=== PATIENT | male | born 1945 | race Caucasian/White ===

== ENCOUNTER → 2017-04-03 | Outpatient (CLI) | payer MEDICARE, OTHER | END | disposition home or self-care (01) | LOC: GMAM 14:07 | PROVIDERS: ATTEND Family Medicine | DX: Z79.899 Other long term (current) drug therapy (principal); Z12.5 Encounter for screening for malignant neoplasm of prostate; E53.8 Deficiency of other specified B group vitamins | CPT/HCPCS: 80162; 82607; G0103 ==

== ENCOUNTER → 2017-06-11 | Outpatient (CLI) | payer MEDICARE, OTHER ==
--- NOTE | 2017-06-11 14:19 | US ---
EXAM DESCRIPTION: Thyroid CLINICAL HISTORY: 71 years Male, THYROID NODULE COMPARISON: None. TECHNIQUE: Real-time sonographic images of the thyroid are obtained. FINDINGS: Right lobe of the thyroid measures 4.9 x 1.9 x 2.4 cm. Left lobe of the thyroid measures 4.8 x 2.2 x 2.4 cm. The isthmus measures 6 mm in thickness. The thyroid is diffusely heterogeneous in echogenicity. Several ill-defined less than 1 cm solid nodules are seen in both lobes of the thyroid. There is a 2.0 x 1.7 x 1.3 cm hypoechoic nodule that is wider than tall with ill-defined borders in the upper pole. No abnormal calcifications are identified. There is a heterogeneous mildly hypoechoic solid nodule that is wider than tall with ill-defined margins and no abnormal calcifications in the midpole of the left lobe measuring 1.7 x 1.5 x 1.1 cm. IMPRESSION: Heterogeneous echogenicity of the thyroid with multiple solid nodules most consistent with multinodular goiter. Consider fine-needle aspiration of largest nodules measuring 2 cm in the upper pole of the right lobe and 1.7 cm in the midpole of the left lobe thyroid. Electronically signed by: Juve Phillip MD 06/11/2017 2:18 PM CDT
== END | disposition home or self-care (01) ==
LOC: US 15:31
PROVIDERS: ATTEND Family Medicine
DX: E04.1 Nontoxic single thyroid nodule (principal)

== ENCOUNTER → 2017-06-12 | Outpatient (CLI) | payer MEDICARE, OTHER | LOC: GMAM 14:49 | PROVIDERS: ATTEND Family Medicine | DX: E29.1 Testicular hypofunction (principal) ==

== ENCOUNTER → 2017-10-22 | Outpatient (CLI) | payer MEDICARE, OTHER | END | disposition home or self-care (01) | LOC: LAB.O 14:05 | PROVIDERS: ATTEND Family Medicine | DX: Z79.899 Other long term (current) drug therapy (principal); E29.1 Testicular hypofunction; E53.8 Deficiency of other specified B group vitamins; E11.65 Type 2 diabetes mellitus with hyperglycemia ==

== ENCOUNTER → 2018-05-07 | Outpatient (CLI) | payer MEDICARE, OTHER | LOC: GMAM 14:53 | PROVIDERS: ATTEND Family Medicine | DX: E29.1 Testicular hypofunction (principal); E53.8 Deficiency of other specified B group vitamins; Z79.899 Other long term (current) drug therapy ==

== ENCOUNTER → 2018-10-29 | Outpatient (CLI) | payer MEDICARE, OTHER | LOC: GMAM 14:23 | PROVIDERS: ATTEND Family Medicine | DX: E53.8 Deficiency of other specified B group vitamins (principal); E04.8 Other specified nontoxic goiter; Z12.5 Encounter for screening for malignant neoplasm of prostate | CPT/HCPCS: 82607; 84439; 84443; G0103 ==

== ENCOUNTER → 2019-05-12 | Outpatient (CLI) | payer MEDICARE, OTHER | LOC: GMAM 14:05 | PROVIDERS: ATTEND Family Medicine | DX: Z79.899 Other long term (current) drug therapy (principal) ==

== ENCOUNTER → 2019-07-10 | Outpatient (CLI) | payer MEDICARE, OTHER | LOC: GMAM 12:14 | PROVIDERS: ATTEND Family Medicine | DX: I10 Essential (primary) hypertension (principal); C61 Malignant neoplasm of prostate; E04.8 Other specified nontoxic goiter; E11.9 Type 2 diabetes mellitus without complications ==

== ENCOUNTER → 2019-07-30 | Outpatient (CLI) | payer MEDICARE, OTHER | LOC: GMAM 17:00 | PROVIDERS: ATTEND Family Medicine | DX: R80.9 Proteinuria, unspecified (principal) ==

== ENCOUNTER → 2020-02-10 | Outpatient (CLI) | payer MEDICARE, OTHER | LOC: GMAM 10:54 | PROVIDERS: ATTEND Family Medicine | DX: R94.6 Abnormal results of thyroid function studies (principal); C61 Malignant neoplasm of prostate; I10 Essential (primary) hypertension; E11.9 Type 2 diabetes mellitus without complications; Z79.899 Other long term (current) drug therapy ==

== ENCOUNTER → 2020-03-24 | Outpatient (CLI) | payer MEDICARE, OTHER ==
--- NOTE | 2020-03-25 10:09 | MRI ---
Study: MRI of the Right Shoulder. Indication: PAIN IN RIGHT SHOULDER Technique: Multiplanar, multi sequence MRI of the right shoulder was obtained without intravenous contrast. 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 Type I acromion with moderate lateral downsloping. Moderate volume subacromial/subdeltoid bursal fluid. Full-thickness, fullwidth supraspinatus tendon tear with retraction of torn tendon fibers medially by 15 mm. High-grade infraspinatus tendinosis with irregular intermediate grade articular tearing throughout the critical zone. High-grade articular, effectively full-thickness tearing superior two thirds subscapularis tendon insertion. Teres minor tendon intact. Mild atrophy and grade 1 fatty infiltration rotator cuff musculature, most pronounced at the subscapularis muscle belly. High-grade long head biceps tendinosis and longitudinal split tearing with partial medial subluxation onto the lesser tuberosity. Circumferential labral truncation and degeneration. Mild glenohumeral joint osteoarthritis and moderate size joint effusion. No acute fracture. Impression: Full-thickness, fullwidth supraspinatus tendon tear. High-grade infraspinatus tendinosis with irregular intermediate grade articular tearing throughout its critical zone. High-grade articular, effectively full-thickness tearing superior two thirds subscapularis tendon insertion. Mild atrophy and grade 1 infiltration rotator cuff musculature. High-grade long head biceps tendinosis and longitudinal split tearing with partial medial subluxation. Circumferential labral truncation and degeneration. Mild glenohumeral joint osteoarthritis and moderate size joint effusion. Electronically signed by: Jose Rafael Shafer MD 03/25/2020 10:07 AM CDT
== END ==
LOC: MRI 13:03
PROVIDERS: ATTEND Family Medicine
DX: M75.101 Unspecified rotator cuff tear or rupture of right shoulder, not specified as traumatic (principal); M75.91 Shoulder lesion, unspecified, right shoulder; S46.811A Strain of other muscles, fascia and tendons at shoulder and upper arm level, right arm, initial encounter; S43.39 Subluxation and dislocation of other parts of shoulder girdle; M75.21 Bicipital tendinitis, right shoulder; M19.011 Primary osteoarthritis, right shoulder; M25.411 Effusion, right shoulder; M62.511 Muscle wasting and atrophy, not elsewhere classified, right shoulder

== ENCOUNTER → 2020-06-07 | Outpatient (CLI) | payer MEDICARE, OTHER | LOC: GMAM 14:48 | PROVIDERS: ATTEND Family Medicine | DX: C61 Malignant neoplasm of prostate (principal); R53.83 Other fatigue; E11.40 Type 2 diabetes mellitus with diabetic neuropathy, unspecified; Z79.899 Other long term (current) drug therapy ==

== ENCOUNTER → 2020-07-06 | Outpatient (CLI) | payer MEDICARE, OTHER | LOC: GMAM 11:08 | PROVIDERS: ATTEND Family Medicine | DX: R41.9 Unspecified symptoms and signs involving cognitive functions and awareness (principal) ==

== ENCOUNTER → 2020-07-08 | Outpatient (CLI) | payer MEDICARE, OTHER ==
--- NOTE | 2020-07-11 08:14 | MRI ---
EXAM DESCRIPTION: Brain w/oContrast CLINICAL HISTORY: UNSPECIFIED SYMPTOMS AND SIGNS INVOLVING COGNITIVE FUNCTIONS COMPARISON: Multiple prior studies. Most recent February 25, 2019 TECHNIQUE: Multiplanar, multi sequence MR images of the head are obtained without IV gadolinium contrast using standard imaging protocol. FINDINGS: The midline structures are not displaced. Sulci are age appropriate. The lateral, third, and fourth ventricles are normal in size, shape, and anatomic positioning. Normal hutson-white differentiation is seen. Normal flow voids are seen in the major intracranial vessels including the dural venous sinuses. There is no evidence of mass, mass effect, hydrocephalus, or acute intracranial hemorrhage. No abnormal extra-axial fluid collections are seen. Mild mostly confluent and mild focal scattered areas of increased FLAIR/T2 signal are again seen in the periventricular white matter and white matter of the centrum semiovale similar to previous. No diffusion restriction. Gradient echo images show no abnormal signal. The pituitary is unremarkable. Visualized paranasal sinuses shows minimal mucosal thickening in the left maxillary sinus.. The visualized orbits and mastoid air cells are unremarkable. IMPRESSION: Age-appropriate atrophy with stable mild old small vessel ischemic type changes. No MRI evidence of acute intracranial ischemia, mass, or mass effect. No progressive worsening of age-appropriate atrophy. Electronically signed by: Juve Phillip MD 07/11/2020 8:13 AM CDT
== END ==
LOC: MRI 14:00
PROVIDERS: ATTEND Family Medicine
DX: R41.9 Unspecified symptoms and signs involving cognitive functions and awareness (principal); G31.9 Degenerative disease of nervous system, unspecified; I67.82 Cerebral ischemia

== ENCOUNTER → 2020-07-19 | Outpatient (CLI) | payer MEDICARE, OTHER | LOC: GMAM 16:00 | PROVIDERS: ATTEND Family Medicine | DX: R79.89 Other specified abnormal findings of blood chemistry (principal); Z79.899 Other long term (current) drug therapy ==

== ENCOUNTER → 2020-07-22 | Outpatient (CLI) | payer MEDICARE, OTHER ==
--- NOTE | 2020-07-22 13:32 | US ---
EXAM DESCRIPTION: Liver: ULTRASOUND. CLINICAL HISTORY: ABNORMAL RESULTS OF LIVER FUNCTION STUDIES COMPARISON: Ultrasound liver September 2013. TECHNIQUE: Transabdominal scannin-dimensional and Doppler modes. FINDINGS: Gallbladder: Surgically absent. No fluid in the gallbladder fossa. Non-tender abdominal wall with transducer pressure. Common bile duct: caliber 5.7 mm within normal limits. Liver: Heterogeneously increased echogenicity; contour liver capsule smooth where seen. No fluid around the liver. Intrahepatic biliary ducts normal caliber. Doppler hepatopedal flow portal vein. 8.4 mm normal caliber Long axis right lobe 17.3 cm. Pancreas: normal size and echogenicity. Duct not seen. Right kidney: long axis measures 12 cm. Volume 291.8 ml. Echogenicity cortex increased but less than the liver. Normal cortical thickness. 1 cm cyst. No echogenic stones and no hydronephrosis. Aorta proximal: 1.9 cm normal caliber. IMPRESSION: 1. Fatty liver and minimally enlarged with steatosis. Physiologic vascularity. Smooth capsule and no ascites. Stable since the prior study. Limited visualization of the pancreas but no gross abnormalities. 2. Large right kidney with increased echogenicity in the cortex but less than the liver and no significant thinning. 1 cm cyst. Otherwise unremarkable. Normal caliber of the abdominal aorta. 3. Gallbladder surgically absent. No fluid or tenderness. Common bile duct normal caliber. Electronically signed by: Av Garcias MD 07/22/2020 1:30 PM CDT
== END ==
LOC: US 08:00
PROVIDERS: ATTEND Family Medicine
DX: R94.5 Abnormal results of liver function studies (principal); K76.0 Fatty (change of) liver, not elsewhere classified; N28.9 Disorder of kidney and ureter, unspecified; N28.1 Cyst of kidney, acquired; Z90.49 Acquired absence of other specified parts of digestive tract

== ENCOUNTER → 2020-09-09 | Outpatient (CLI) | payer MEDICARE, OTHER | LOC: GMAM 10:36 | PROVIDERS: ATTEND Family Medicine | DX: R79.89 Other specified abnormal findings of blood chemistry (principal) ==

== ENCOUNTER → 2020-10-18 | Outpatient (CLI) | payer MEDICARE, OTHER | LOC: GMAM 15:10 | PROVIDERS: ATTEND Family Medicine | DX: R06.02 Shortness of breath (principal); R05 Cough; I48.20 Chronic atrial fibrillation, unspecified ==